=== PATIENT | male | born 1970 | race Caucasian/White ===

== ENCOUNTER 2024-05-19 14:58 | Inpatient (IN) | payer SELFPAY ==
[2024-05-19] MEDS ORDERED: Ondansetron ODT 4 MG TAB PO PRN (16:13)
[2024-05-19] MEDS ORDERED: Ondansetron PF 4 MG/2 ML Vial IVP PRN (16:13)
[2024-05-19] MEDS ORDERED: Acetaminophen 650 MG Suppository PR PRN (16:13)
[2024-05-19] MEDS ORDERED: Lorazepam 2 MG/ML VIAL IM PRN (16:17)
[2024-05-19] MEDS ORDERED: Electrolyte Replacement Protocol 1 EACH FS PRN (16:30)
[2024-05-19] MEDS: Thiamine HCl 200 MG/2 ML VIAL SLOW IVP SCH (16:40)
[2024-05-19] MEDS: Lorazepam 2 MG/ML VIAL SLOW IVP SCH ×2 (16:40→17:49)
[2024-05-19 17:05] VITALS: BMI 20.6
[2024-05-19 17:14] LABS: ALT (SGPT) 34 U/L (8-55); AST (SGOT) 34 U/L (5-34); Albumin 3.7 g/dL (3.5-5.0); Alkaline Phosphatase 63 U/L (40-110); Anion Gap 17 mmol/L (10-20); BUN (Urea Nitrogen) 5 mg/dL (8.4-25.7); Bilirubin, Direct 0.3 mg/dL (0.1-0.3); Bilirubin, Total 0.8 mg/dL (0.2-1.2); Calc. Creatinine Clearance 95 mL/min (70-130); Calcium 9.3 mg/dL (7.8-10.44); Carbon Dioxide 24 mmol/L (22-29); Chloride 104 mmol/L (98-107); Estimated GFR 108; Globulin 3.1 g/dL (2.4-3.5); Glucose 126 mg/dL (70-105); Magnesium 1.5 mg/dL (1.6-2.6); Phosphorus 2.9 mg/dL (2.3-4.7); Potassium 3.6 mmol/L (3.5-5.1); Protein, Total 6.8 g/dL (6.0-8.3); Sodium 141 mmol/L (136-145)
[2024-05-19] MEDS: Haloperidol Lactate 5 MG/ML VIAL SLOW IVP SCH (18:42)
[2024-05-19] MEDS: Famotidine 20 MG TAB PO SCH (20:45)
[2024-05-19] MEDS: Lorazepam 1 MG TAB PO PRN (20:45)
[2024-05-19] MEDS: Valproic Acid 250 mg/5 ml UD Cup PO SCH (20:45)
[2024-05-19] MEDS: Magnesium 2 GM/50 ML(in water) 2 GM in Premix 1 BAG IVPB SCH (22:22)
[2024-05-20 05:49] LABS: #Basophils 0.04 10x3/uL (0.0-0.2); %Basophils 0.8 % (0.0-1.0); %Eosinophils 1.9 % (0.0-10.0); %Monocytes 12.3 % (0.0-10.0); %Neutrophils 56.6 % (42.0-75.0); Hematocrit 40.8 % (42.0-52.0); Hemoglobin 13.7 g/dL (14.0-18.0); Mean Corpuscular HGB CONC 33.6 g/dL (32.0-36.0); Mean Corpuscular Hemoglobin 33.3 pg (27.0-31.0); Mean Platelet Volume 10.5 fL (7.4-10.4); Platelet Count 108 10x3/uL (130-400); RBC Distribution Width 12.3 % (11.5-14.5); Red Blood Cell (RBC) Count 4.12 mill/uL (4.70-6.10)
[2024-05-20 06:10] LABS: Anion Gap 16 mmol/L (10-20); BUN (Urea Nitrogen) 4 mg/dL (8.4-25.7); Calc. Creatinine Clearance 103 mL/min (70-130); Calcium 9.3 mg/dL (7.8-10.44); Carbon Dioxide 23 mmol/L (22-29); Chloride 104 mmol/L (98-107); Estimated GFR 111; Glucose 78 mg/dL (70-105); Potassium 4.3 mmol/L (3.5-5.1); Sodium 139 mmol/L (136-145)
[2024-05-20] MEDS: Enoxaparin 40 MG (0.4 mL) SYRINGE SC SCH (08:15)
[2024-05-20] MEDS: Multivit, Therapeutic 1 TAB PO SCH (08:15)
[2024-05-20] MEDS: Folic Acid 1 MG TAB PO SCH (08:15)
[2024-05-20] MEDS ORDERED: Labetalol HCl 100 MG/20 ML VIAL SLOW IVP PRN (16:54)
[2024-05-20] MEDS: Lorazepam 1 MG TAB PO PRN (19:15)
[2024-05-21 06:18] LABS: #Basophils 0.05 10x3/uL (0.0-0.2); %Basophils 0.9 % (0.0-1.0); %Eosinophils 0.7 % (0.0-10.0); %Lymphocytes 21.3 % (21.0-51.0); %Monocytes 14.4 % (0.0-10.0); %Neutrophils 62.5 % (42.0-75.0); Hematocrit 40.3 % (42.0-52.0); Hemoglobin 13.9 g/dL (14.0-18.0); Mean Corpuscular HGB CONC 34.5 g/dL (32.0-36.0); Mean Corpuscular Hemoglobin 34.2 pg (27.0-31.0); Mean Corpuscular Volume 99.3 fL (78.0-98.0); Mean Platelet Volume 10.3 fL (7.4-10.4); Platelet Count 121 10x3/uL (130-400); Red Blood Cell (RBC) Count 4.06 mill/uL (4.70-6.10)
[2024-05-21 06:42] LABS: ALT (SGPT) 29 U/L (8-55); AST (SGOT) 40 U/L (5-34); Albumin 3.6 g/dL (3.5-5.0); Alkaline Phosphatase 59 U/L (40-110); Anion Gap 14 mmol/L (10-20); BUN (Urea Nitrogen) Less than 4 mg/dL (8.4-25.7); Bilirubin, Total 0.9 mg/dL (0.2-1.2); Calc. Creatinine Clearance 103 mL/min (70-130); Calcium 9.5 mg/dL (7.8-10.44); Carbon Dioxide 24 mmol/L (22-29); Chloride 101 mmol/L (98-107); Estimated GFR 111; Globulin 3.3 g/dL (2.4-3.5); Glucose 91 mg/dL (70-105); Magnesium 1.8 mg/dL (1.6-2.6); Potassium 3.1 mmol/L (3.5-5.1); Protein, Total 6.9 g/dL (6.0-8.3); Sodium 136 mmol/L (136-145)
[2024-05-21] MEDS: Potassium Chloride 20 MEQ TAB PO SCH (09:11)
[2024-05-21] MEDS: Polyvinyl Alcohol 1.4%/Povidone 0.6% Opth Drops EA EYE SCH (09:12)
[2024-05-21] MEDS: Magnesium 2 GM/50 ML(in water) 2 GM in Premix 1 BAG IVPB SCH (09:13)
[2024-05-21] MEDS: Acetaminophen 325 MG TAB PO PRN (22:35)
[2024-05-21] MEDS: Lorazepam 1 MG TAB PO PRN (22:35)
[2024-05-22 10:18] LABS: Anion Gap 16 mmol/L (10-20); BUN (Urea Nitrogen) Less than 4 mg/dL (8.4-25.7); Calc. Creatinine Clearance 106 mL/min (70-130); Calcium 9.5 mg/dL (7.8-10.44); Carbon Dioxide 20 mmol/L (22-29); Chloride 106 mmol/L (98-107); Estimated GFR 112; Glucose 92 mg/dL (70-105); Potassium 3.3 mmol/L (3.5-5.1); Sodium 139 mmol/L (136-145)
[2024-05-22 10:22] LABS: #Basophils 0.05 10x3/uL (0.0-0.2); %Eosinophils 1.5 % (0.0-10.0); %Lymphocytes 29.1 % (21.0-51.0); %Monocytes 17.4 % (0.0-10.0); %Neutrophils 50.8 % (42.0-75.0); Hemoglobin 14.1 g/dL (14.0-18.0); Mean Corpuscular HGB CONC 33.6 g/dL (32.0-36.0); Mean Corpuscular Hemoglobin 34.1 pg (27.0-31.0); Mean Corpuscular Volume 101.7 fL (78.0-98.0); Mean Platelet Volume 10.6 fL (7.4-10.4); Platelet Count 123 10x3/uL (130-400); RBC Distribution Width 12.2 % (11.5-14.5); Red Blood Cell (RBC) Count 4.13 mill/uL (4.70-6.10)
[2024-05-22] MEDS: Polyvinyl Alcohol 1.4%/Povidone 0.6% Opth Drops EA EYE SCH (10:26)
[2024-05-22] MEDS: Amlodipine 5 MG TAB PO SCH (11:40)
[2024-05-22 12:49] LABS: Platelet Adequacy Comment Platelets Decreased
[2024-05-22] MEDS: Potassium Chloride 20 MEQ TAB PO SCH (14:36)
[2024-05-22] MEDS: Thiamine 100 MG TAB PO SCH (15:21)
[2024-05-22] MEDS: Lorazepam 0.5 MG TAB PO PRN (23:37)
[2024-05-23 05:40] LABS: ALT (SGPT) 24 U/L (8-55); AST (SGOT) 34 U/L (5-34); Albumin 3.4 g/dL (3.5-5.0); Alkaline Phosphatase 55 U/L (40-110); Anion Gap 13 mmol/L (10-20); BUN (Urea Nitrogen) 5 mg/dL (8.4-25.7); Bilirubin, Total 0.7 mg/dL (0.2-1.2); Calc. Creatinine Clearance 106 mL/min (70-130); Calcium 9.3 mg/dL (7.8-10.44); Carbon Dioxide 25 mmol/L (22-29); Chloride 108 mmol/L (98-107); Estimated GFR 112; Globulin 3.4 g/dL (2.4-3.5); Glucose 104 mg/dL (70-105); Potassium 3.6 mmol/L (3.5-5.1); Protein, Total 6.8 g/dL (6.0-8.3); Sodium 142 mmol/L (136-145)
[2024-05-23] MEDS: Amlodipine 5 MG TAB PO SCH (10:46)
[2024-05-24 07:56] VITALS: BP 133/83; TEMP 98.6
== END 2024-05-24 11:49 | disposition home or self-care (01) | DRG 896 ==
LOC: T4-B 15:51
PROVIDERS: ADMIT Family Medicine; ATTEND Family Medicine
DX: F10.129 Alcohol abuse with intoxication, unspecified (principal); G93.41 Metabolic encephalopathy; E51.2 Wernicke's encephalopathy; F10.131 Alcohol abuse with withdrawal delirium; E83.42 Hypomagnesemia; R27.0 Ataxia, unspecified; I10 Essential (primary) hypertension; Z88.0 Allergy status to penicillin
CPT/HCPCS: 36415; 36416; 80048; 80053; 82248; 83735; 84100; 85025; J1630; J1650; J2060; J3411; J3475

== ENCOUNTER 2024-09-09 21:56 | Observation (INO) | payer OTHER, SELFPAY ==
[2024-09-09 22:55] LABS: #Basophils 0.04 10x3/uL (0.0-0.2); %Basophils 0.6 % (0.0-1.0); %Lymphocytes 18.3 % (21.0-51.0); %Monocytes 19.2 % (0.0-10.0); %Neutrophils 60.8 % (42.0-75.0); Hematocrit 39.7 % (42.0-52.0); Hemoglobin 13.6 g/dL (14.0-18.0); Mean Corpuscular HGB CONC 34.3 g/dL (32.0-36.0); Mean Corpuscular Hemoglobin 33.8 pg (27.0-31.0); Mean Corpuscular Volume 98.8 fL (78.0-98.0); Mean Platelet Volume 10.6 fL (7.4-10.4); Platelet Count 106 10x3/uL (130-400); RBC Distribution Width 12.8 % (11.5-14.5); Red Blood Cell (RBC) Count 4.02 mill/uL (4.70-6.10)
[2024-09-09 23:28] LABS: Lipase 22 U/L (8-78); Magnesium 1.9 mg/dL (1.6-2.6)
[2024-09-09 23:30] LABS: ALT (SGPT) 50 U/L (8-55); AST (SGOT) 35 U/L (5-34); Albumin 4.1 g/dL (3.5-5.0); Alkaline Phosphatase 65 U/L (40-110); Anion Gap 14 mmol/L (10-20); BUN (Urea Nitrogen) 6 mg/dL (8.4-25.7); Bilirubin, Total 0.5 mg/dL (0.2-1.2); Calc. Creatinine Clearance 0 mL/min (70-130); Calcium 9.9 mg/dL (7.8-10.44); Carbon Dioxide 27 mmol/L (22-29); Chloride 107 mmol/L (98-107); Estimated GFR 102; Globulin 3.3 g/dL (2.4-3.5); Glucose 107 mg/dL (70-105); Lipase 22 U/L (8-78); Potassium 3.3 mmol/L (3.5-5.1); Protein, Total 7.4 g/dL (6.0-8.3); Sodium 145 mmol/L (136-145)
[2024-09-09 23:34] LABS: Troponin I Less than 0.010 ng/mL (< 0.028)
[2024-09-09] MEDS ORDERED: Lorazepam 2 MG/ML VIAL ONE (23:35)
[2024-09-10] MEDS ORDERED: Folic Acid 1 MG TAB ONE ×2 (00:28→10:04)
[2024-09-10] MEDS ORDERED: Thiamine HCl 200 MG/2 ML VIAL ONE (00:28)
[2024-09-10 00:47] LABS: Lipase 22 U/L (8-78)
[2024-09-10 00:50] LABS: Acetaminophen Less than 10 mcg/mL (Less than 10); Alcohol Less than 10.0 mg/dL (Less than 10); Salicylate Less than 8.0 mg/dL (Less than 8.0); Troponin I Less than 0.010 ng/mL (< 0.028)
[2024-09-10] MEDS ORDERED: Potassium Chloride 20 MEQ TAB ONE (00:55)
[2024-09-10 01:58] LABS: Phosphorus 3.5 mg/dL (2.3-4.7)
[2024-09-10] MEDS ORDERED: Lorazepam 2 MG/ML VIAL IM PRN (02:10)
[2024-09-10] MEDS ORDERED: Ondansetron ODT 4 MG TAB PO PRN ×2 (02:10)
[2024-09-10] MEDS ORDERED: Ondansetron PF 4 MG/2 ML Vial IVP PRN (02:10)
[2024-09-10] MEDS ORDERED: Acetaminophen 650 MG Suppository PR PRN (02:10)
[2024-09-10] MEDS ORDERED: Lorazepam 1 MG TAB PO PRN (02:10)
[2024-09-10] MEDS ORDERED: Electrolyte Replacement Protocol 1 EACH FS SCH (02:15)
[2024-09-10] MEDS: Folic Acid 5 MG/ML MDV IVP SCH (03:22)
[2024-09-10] MEDS ORDERED: Magnesium 2 GM/50 ML BAG (IN WATER) ONE (03:59)
[2024-09-10] MEDS: Magnesium 2 GM/50 ML(in water) 2 GM in Premix 1 BAG IVPB SCH (04:28)
[2024-09-10 04:36] VITALS: BMI 19.4
[2024-09-10 05:57] LABS: #Basophils 0.05 10x3/uL (0.0-0.2); %Basophils 0.9 % (0.0-1.0); %Eosinophils 1.2 % (0.0-10.0); %Lymphocytes 22.7 % (21.0-51.0); %Monocytes 16.8 % (0.0-10.0); %Neutrophils 58.2 % (42.0-75.0); Hematocrit 37.6 % (42.0-52.0); Hemoglobin 12.1 g/dL (14.0-18.0); Mean Corpuscular HGB CONC 32.2 g/dL (32.0-36.0); Mean Corpuscular Hemoglobin 33.7 pg (27.0-31.0); Mean Corpuscular Volume 104.7 fL (78.0-98.0); Mean Platelet Volume 10.2 fL (7.4-10.4); Platelet Count 141 10x3/uL (130-400); RBC Distribution Width 12.9 % (11.5-14.5); Red Blood Cell (RBC) Count 3.59 mill/uL (4.70-6.10)
[2024-09-10 06:20] LABS: Troponin I Less than 0.010 ng/mL (< 0.028)
[2024-09-10 06:24] LABS: ALT (SGPT) 43 U/L (8-55); AST (SGOT) 31 U/L (5-34); Albumin 3.7 g/dL (3.5-5.0); Alkaline Phosphatase 53 U/L (40-110); Anion Gap 14 mmol/L (10-20); BUN (Urea Nitrogen) 5 mg/dL (8.4-25.7); Bilirubin, Total 0.8 mg/dL (0.2-1.2); Calc. Creatinine Clearance 101 mL/min (70-130); Calcium 9.1 mg/dL (7.8-10.44); Carbon Dioxide 23 mmol/L (22-29); Chloride 110 mmol/L (98-107); Estimated GFR 108; Globulin 2.9 g/dL (2.4-3.5); Glucose 86 mg/dL (70-105); Potassium 3.4 mmol/L (3.5-5.1); Protein, Total 6.6 g/dL (6.0-8.3); Sodium 144 mmol/L (136-145)
[2024-09-10] MEDS ORDERED: Famotidine/PF 20 mg/2ml Vial SLOW IVP SCH (09:00)
[2024-09-10] MEDS ORDERED: fentaNYL 50 mcg/mL 1 mL Vial ONE (09:43)
[2024-09-10] MEDS: fentaNYL 50 mcg/mL 1 mL Vial SLOW IVP SCH (09:45)
[2024-09-10] MEDS ORDERED: Famotidine 20 MG TAB ONE (10:04)
[2024-09-10] MEDS ORDERED: Potassium Bicarbonate/Cit Ac 20 MEQ TAB ONE (10:04)
[2024-09-10] MEDS ORDERED: Enoxaparin 40 MG (0.4 mL) SYRINGE ONE (10:04)
[2024-09-10] MEDS ORDERED: Multivit, Therapeutic 1 TAB ONE (10:04)
[2024-09-10] MEDS: Enoxaparin 40 MG (0.4 mL) SYRINGE SC SCH (10:20)
[2024-09-10] MEDS: Folic Acid 1 MG TAB PO SCH (10:20)
[2024-09-10] MEDS: Multivit, Therapeutic 1 TAB PO SCH (10:20)
[2024-09-10] MEDS: Potassium Bicarbonate/Cit Ac 20 MEQ TAB PO SCH (10:20)
[2024-09-10 10:46] LABS: Troponin I Less than 0.010 ng/mL (< 0.028)
[2024-09-10] MEDS: Acetaminophen 325 MG TAB PO PRN (11:40)
[2024-09-10 14:21] LABS: Troponin I 0.016 ng/mL (< 0.028)
[2024-09-10 20:00] LABS: ALT (SGPT) 41 U/L (8-55); AST (SGOT) 32 U/L (5-34); Albumin 3.8 g/dL (3.5-5.0); Alkaline Phosphatase 55 U/L (40-110); Bilirubin, Direct 0.3 mg/dL (0.1-0.3); Bilirubin, Total 0.9 mg/dL (0.2-1.2); Protein, Total 6.6 g/dL (6.0-8.3)
[2024-09-10] MEDS ORDERED: Pantoprazole 40 MG VIAL IVP SCH (21:00)
[2024-09-10] MEDS: Morphine 2 MG/ML VIAL SLOW IVP SCH (21:00)
[2024-09-10] MEDS: Pantoprazole 40 MG VIAL IVP SCH (22:07)
[2024-09-11] MEDS ORDERED: Lorazepam 1 MG TAB PO PRN (02:11)
[2024-09-11] MEDS: Thiamine HCl 200 MG/2 ML VIAL SLOW IVP SCH (03:30)
[2024-09-11] MEDS: Pantoprazole 40 MG VIAL IVP SCH (07:57)
[2024-09-11 08:03] VITALS: TEMP 97.3
[2024-09-11] MEDS: Mag-Al Plus 1200/1200/120 MG (30 mL) UDCUP PO PRN (09:32)
[2024-09-11 11:03] LABS: Amphetamine Not Detected (NotDetected); Barbiturates Screen Not Detected (NotDetected); Benzodiazepine Screen Detected (NotDetected); Cocaine Metabolite Screen Not Detected (NotDetected); Methadone Not Detected (NotDetected); Methamphetamine Not Detected (NotDetected); Opiate Screen Not Detected (NotDetected); Oxycodone Screen Not Detected (NotDetected); Phencyclidine (PCP) Not Detected (NotDetected); THC/Cannabinoid Screen Not Detected (NotDetected); Tricyclic Screen Not Detected (NotDetected)
[2024-09-11 16:34] VITALS: BP 157/92
[2024-09-12] MEDS ORDERED: Lorazepam 1 MG TAB PO PRN (02:11)
[2024-09-12] MEDS ORDERED: Thiamine 100 MG TAB PO SCH (21:00)
[2024-09-13] MEDS ORDERED: Lorazepam 0.5 MG TAB PO PRN (02:11)
== END 2024-09-11 18:22 ==
LOC: ERS 21:56 → EEVIPCON 09-10 01:43 → ERHOLD 09-10 01:43 → 2SE 09-10 17:23
PROVIDERS: ADMIT Family Medicine; ATTEND Internal Medicine
PROC: B24BZZZ Ultrasonography of Heart with Aorta (ICD-10-PCS; principal; 2024-09-11)
DX: F10.231 Alcohol dependence with withdrawal delirium (principal); R07.2 Precordial pain; R10.9 Unspecified abdominal pain; I10 Essential (primary) hypertension; L40.9 Psoriasis, unspecified; Z88.0 Allergy status to penicillin; Z79.899 Other long term (current) drug therapy; Y90.0 Blood alcohol level of less than 20 mg/100 ml
CPT/HCPCS: 36415; 36416; 70450; 71045; 74022; 76705; 80053; 80306; 80307; 82140; 83690; 83735; 83880; 84100; 84443; 84484; 85025; 87040; 87149; 93005; 93306; 96372; 96374; 96375; 96376; G0378; J1650; J2060; J2470; J3010; J3411; J3475